=== PATIENT | female | born 1995 | race Caucasian/White ===

== ENCOUNTER 2018-06-05 22:51 | Emergency (ER) | payer SELFPAY ==
[~2018-06-05] VITALS: Ht 170.2 cm; Wt 63.5 kg
[2018-06-05 22:55] VITALS: BP 100/80
[2018-06-05] MEDS: KETOROLAC 30 MG/ML VIAL IM ONE (23:58)
[2018-06-05] MEDS: DIAZEPAM 5 MG TAB PO ONE (23:59)
[2018-06-06 00:36] VITALS: BP 100/80
== END 2018-06-06 00:38 | disposition home or self-care (01) ==
LOC: MED 22:51
DX: S39.012A Strain of muscle, fascia and tendon of lower back, initial encounter (principal); W01.0XXA Fall on same level from slipping, tripping and stumbling without subsequent striking against object, initial encounter; Y93.89 Activity, other specified; Y92.89 Other specified places as the place of occurrence of the external cause; Y99.8 Other external cause status
CPT/HCPCS: 72080; 81025; 96372; 99284; J1885